=== PATIENT | female | born 2000 | race Caucasian/White ===

== ENCOUNTER 2019-04-27 11:01 | Day surgery (SDC) | payer BC ==
[~2019-04-27 11:01] MED LIST: Lactated Ringers 1,000 ML IV SCH; Sodium Chloride 0.9% 10 ML SDV IV PRN; Sodium Chloride 0.9% 10 ML Syringe FLUSH PRN; Sodium Chloride 0.9% 2.5 ML Syringe FLUSH PRN
--- NOTE | 2019-04-27 12:00 | PCM.PREANE ---
Preanesthetic Assessment - Anesthesia/Transfusion/Family Hx Anesthesia History: Prior Anesthesia Without Reaction Family History of Anesthesia Reaction: No Transfusion History: No Prior Transfusion(s) Intubation History: Unknown - Review of Systems General: No Symptoms Pulmonary: No Symptoms Cardiovascular: No Symptoms Gastrointestinal: Diarrhea, Hematochezia Neurological: No Symptoms Other: Reports: None - Physical Assessment NPO Status Date: 04/27/19 NPO Status Time: 10:30 O2 Sat by Pulse Oximetry: 99 Respiratory Rate: 16 Vital Signs: Last Vital Signs Temp 36.1 C 04/27/19 11:30 Pulse 109 H 04/27/19 11:30 Resp 16 04/27/19 11:30 BP 146/93 H 04/27/19 11:30 Pulse Ox 99 04/27/19 11:30 Height: 5 ft 2 in Weight: 67.132 kg ASA Class: 2 Mental Status: Alert & Oriented x3 Airway Class: Mallampati = 2 Dentition: Reports: Normal Dentition Thyro-Mental Finger Breadths: 3 Mouth Opening Finger Breadths: 3 ROM/Head Extension: Full Lungs: Clear to Auscultation, Normal Respiratory Effort Cardiovascular: Regular Rate, Regular Rhythm - Lab Values: Laboratory Last Values Urine HCG, Qual NEGATIVE (NEGATIVE) 04/27/19 11:20 - Allergies Allergies/Adverse Reactions: Allergies Allergy/AdvReac Type Severity Reaction Status Date / Time Sulfa (Sulfonamide Allergy Anaphylactic Verified 04/22/19 14:30 Antibiotics) Shock - Blood Blood Available: No - Anesthesia Plan Pre-Op Medication Ordered: None - Acknowledgements Anesthesia Type Planned: MAC Pt an Appropriate Candidate for the Planned Anesthesia: Yes Alternatives and Risks of Anesthesia Discussed w Pt/Guardian: Yes Pt/Guardian Understands and Agrees with Anesthesia Plan: Yes PreAnesthesia Questionnaire HEENT History: Reports: Other (See Below) Other HEENT History: wears glasses/contacts, has removable dental retainer Gastrointestinal History: Reports: Chronic Diarrhea, Irritable Bowel Syndrome Musculoskeletal History: Reports: Fracture Other Musculoskeletal History: hx of fx toe Neurological History: Reports: Other (See Below) Other Neuro History: hx of Sleep Paralysis Psychiatric History: Reports: Anxiety Dermatologic History: Reports: Eczema - Past Surgical History HEENT Surgical History: Reports: Adenoidectomy, Myringotomy w Tube(s), Oral Surgery, Tonsillectomy Other HEENT Surgeries/Procedures: wisdom teeth GI Surgical History: Reports: EGD (05/17) - SUBSTANCE USE Smoking Status *Q: Never Smoker Recreational Drug Use History: No - HOME MEDS Home Medications: Home Meds ALPRAZolam [Alprazolam] 0.5 - 1 mg PO ASDIRECTED PRN 04/22/19 [History] Desogestrel-Ethinyl Estradiol [Reclipsen 28 Day Tablet] 1 tab PO DAILY 04/22/19 [History] Dicyclomine [Bentyl] 10 mg PO Q6H PRN 04/22/19 [History] Escitalopram Oxalate 20 mg PO DAILY 04/22/19 [History] Imipramine HCl 10 mg PO ASDIRECTED PRN 04/22/19 [History] L.acidoph,Paracasei, B.lactis [Probiotic] 1 cap PO ASDIRECTED PRN 04/22/19 [ History] Methylcellulose [Fiber] 1 tab PO ASDIRECTED PRN 04/22/19 [History] Triamcinolone Acetonide [Nasacort] 1 spray NASBOTH DAILY 04/22/19 [History] - CURRENT (IN HOUSE) MEDS Current Meds: Current Medications Lactated Ringer's (Ringers, Lactated) 1,000 mls @ 125 mls/hr IV ASDIRECTED YADIRA Sodium Chloride (Saline Flush) 10 ml FLUSH ASDIRECTED PRN PRN Reason: Keep Vein Open Sodium Chloride (Saline Flush) 2.5 ml FLUSH ASDIRECTED PRN PRN Reason: Keep Vein Open Sodium Chloride (Saline Flush) 10 ml FLUSH ASDIRECTED PRN PRN Reason: Keep Vein Open Sodium Chloride (Saline Flush) 2.5 ml FLUSH ASDIRECTED PRN PRN Reason: Keep Vein Open Sodium Chloride (Normal Saline) 10 ml IV ASDIRECTED PRN PRN Reason: IV Use
[2019-04-27] MEDS ORDERED: Lidocaine 2% 100 MG/5 ML Syringe ONE (14:42)
[2019-04-27] MEDS ORDERED: Propofol 200 MG/20 ML SDV ONE ×2 (14:42→14:46)
--- NOTE | 2019-04-27 15:00 | PCM.OPNOTE ---
- General Post-Op/Procedure Note Date of Surgery/Procedure: 04/27/19 Operative Procedure(s): diagnostic colonoscopy Findings: normal colonoscopy Pre Op Diagnosis: change in bowel habits Post-Op Diagnosis: IBS Anesthesia Technique: MAC Primary Surgeon: Shameka Iqbal Pathology: none EBL in mLs: 0 Condition: Good
--- NOTE | 2019-04-27 15:17 | PCM.POSTAN ---
POST ANESTHESIA ASSESSMENT - MENTAL STATUS Mental Status: Alert, Oriented - VITAL SIGNS Pulse Rate: 90 SaO2: 98 Resp Rate: 12 Blood Pressure: 123/84 - RESPIRATORY Respiratory Status: Respiratory Rate WNL, Airway Patent, O2 Saturation Stable - CARDIOVASCULAR CV Status: Pulse Rate WNL, Blood Pressure Stable - GASTROINTESTINAL GI Status: No Symptoms - PAIN Pain Score: 0 - POST OP HYDRATION Hydration Status: Adequate & Stable
--- NOTE | 2019-04-27 15:58 | PCM48HPAN ---
Post Anesthesia Note - EVALUATION WITHIN 48HRS OF ANESTHETIC Vital Signs in Normal Range: Yes Patient Participated in Evaluation: Yes Respiratory Function Stable: Yes Airway Patent: Yes Cardiovascular Function Stable: Yes Hydration Status Stable: Yes Pain Control Satisfactory: Yes Nausea and Vomiting Control Satisfactory: Yes Mental Status Recovered: Yes Pulse Rate: 90 Resp Rate: 16 Blood Pressure: 123/84 - COMMENTS/OBSERVATIONS Free Text/Narrative:: no anesthesia problems
--- NOTE | 2019-04-27 23:54 | OR ---
SURGEON: SHAMEKA IQBAL MD DATE OF PROCEDURE: 04/27/2019 PREOPERATIVE DIAGNOSIS: Change in bowel habits. POSTOPERATIVE DIAGNOSIS: Irritable bowel syndrome. PROCEDURE PERFORMED: Diagnostic colonoscopy. ENDOSCOPIST: Shameka Iqbal MD. ANESTHESIA: MAC. INSTRUMENT USED: Olympus colonoscope. EXTENT OF EXAM: To the cecum. PREPARATION: Good. LIMITATIONS: None. INDICATION FOR EXAMINATION: The patient is a 19-year-old female, who presents with chronic abdominal pain associated with diarrhea. The decision was made to proceed with diagnostic colonoscopy. I explained the procedure, expected perioperative course, and risks including bleeding, infection, or damage to surrounding structures including perforation. The patient verbalized understanding and wishes to proceed. PROCEDURE IN DETAIL: The patient was brought into the OR and laid in the cart in the left lateral decubitus position. A time-out was completed verifying the patient's name, age, date of , allergies, and procedure to be performed. Monitored anesthesia care was induced and continuous oxygen was provided via nasal cannula throughout the procedure. After adequate sedation was achieved, a digital rectal exam was performed. This exam was within normal limits. A well lubricated colonoscope was inserted in the rectum and advanced under direct visualization to the level of the cecum. The cecum was identified by both visual and anatomic landmarks. A photograph was taken of the cecal cap as well as with the scope retroflexed within the cecum. The scope was then fully withdrawn while examining the color, texture, anatomy, and integrity of the mucosa from the cecum to the anal canal. The patient's terminal ilium appeared pink and healthy with no evidence of inflammation. The colonic mucosa all appeared normal. The scope was then brought into the rectum. I attempted to retroflex the scope, however, due to the patient's small rectum, I was unable to do so. I attempted to retroflex multiple times but it was just causing trauma to the rectal mucosa. I slowly retracted the scope. I was able to take a good look at the patient's hemorrhoids, which appeared normal. The scope was removed and the procedure terminated. The cecum to anus time was 6 minutes. The patient tolerated the procedure well was transferred to the PACU in stable condition. ENDOSCOPIC DIAGNOSIS: Irritable bowel syndrome. RECOMMENDATIONS: We will follow up with the patient in clinic in 2 weeks. PAKO ZENDEJAS /[id number]
== END 2019-04-27 15:45 | disposition home or self-care (01) ==
LOC: MW.SDS 11:01
PROVIDERS: ATTEND Surgery
DX: K58.9 Irritable bowel syndrome, unspecified (principal); K64.9 Unspecified hemorrhoids; F40.10 Social phobia, unspecified; R10.9 Unspecified abdominal pain; G89.29 Other chronic pain; Z88.2 Allergy status to sulfonamides; Z79.899 Other long term (current) drug therapy
CPT/HCPCS: 45378; 81025; J2001; J2704; J7120; 00811

== ENCOUNTER 2019-05-05 06:43 | Day surgery (SDC) | payer BC ==
[~2019-05-05 06:43] MED LIST changes: +ceFAZolin 1 GM in Premix Bag 1 BAG IV ONE
--- NOTE | 2019-05-05 07:12 | PCM.PREANE ---
Preanesthetic Assessment - Anesthesia/Transfusion/Family Hx Anesthesia History: Prior Anesthesia Without Reaction Family History of Anesthesia Reaction: No Transfusion History: No Prior Transfusion(s) Intubation History: Unknown - Review of Systems General: No Symptoms Pulmonary: No Symptoms Cardiovascular: No Symptoms Gastrointestinal: No Symptoms Neurological: No Symptoms Other: Reports: None - Physical Assessment Height: 5 ft 2 in Weight: 69.853 kg ASA Class: 2 Mental Status: Alert & Oriented x3 Airway Class: Mallampati = 2 Dentition: Reports: Normal Dentition Thyro-Mental Finger Breadths: 3 Mouth Opening Finger Breadths: 3 ROM/Head Extension: Full Lungs: Clear to Auscultation, Normal Respiratory Effort Cardiovascular: Regular Rate, Regular Rhythm - Lab Values: Laboratory Last Values Urine HCG, Qual NEGATIVE (NEGATIVE) 05/05/19 06:50 - Allergies Allergies/Adverse Reactions: Allergies Allergy/AdvReac Type Severity Reaction Status Date / Time Sulfa (Sulfonamide Allergy Anaphylactic Verified 04/30/19 13:55 Antibiotics) Shock - Blood Blood Available: No - Anesthesia Plan Pre-Op Medication Ordered: None - Acknowledgements Anesthesia Type Planned: General Anesthesia Pt an Appropriate Candidate for the Planned Anesthesia: Yes Alternatives and Risks of Anesthesia Discussed w Pt/Guardian: Yes Pt/Guardian Understands and Agrees with Anesthesia Plan: Yes PreAnesthesia Questionnaire HEENT History: Reports: Other (See Below) Other HEENT History: wears glasses/contacts, has removable dental retainer Cardiovascular History: Reports: None Respiratory History: Reports: None Gastrointestinal History: Reports: Irritable Bowel Syndrome, Other (See Below) ( cholecystitis) Genitourinary History: Reports: None Musculoskeletal History: Reports: Fracture Other Musculoskeletal History: hx of fx toe Neurological History: Reports: Other (See Below) Other Neuro History: hx of Sleep Paralysis Psychiatric History: Reports: Anxiety, Depression Endocrine/Metabolic History: Reports: None Hematologic History: Reports: None Immunologic History: Reports: None Oncologic (Cancer) History: Reports: None Dermatologic History: Reports: Eczema - Past Surgical History Head Surgeries/Procedures: Reports: None HEENT Surgical History: Reports: Myringotomy w Tube(s), Tonsillectomy, Other ( See Below) Other HEENT Surgeries/Procedures: Mcgrew Teeth removal Cardiovascular Surgical History: Reports: None Respiratory Surgical History: Reports: None GI Surgical History: Reports: Colonoscopy, EGD Female Surgical History: Reports: None Endocrine Surgical History: Reports: None Neurological Surgical History: Reports: None Musculoskeletal Surgical History: Reports: None Oncologic Surgical History: Reports: None - SUBSTANCE USE Smoking Status *Q: Never Smoker Recreational Drug Use History: No - HOME MEDS Home Medications: Home Meds ALPRAZolam [Alprazolam] 0.5 - 1 mg PO ASDIRECTED PRN 04/22/19 [History] Desogestrel-Ethinyl Estradiol [Reclipsen 28 Day Tablet] 1 tab PO DAILY 04/22/19 [History] Dicyclomine [Bentyl] 10 mg PO Q6H PRN 04/22/19 [History] Escitalopram Oxalate 20 mg PO DAILY 04/22/19 [History] Imipramine HCl 10 mg PO ASDIRECTED PRN 04/22/19 [History] L.acidoph,Paracasei, B.lactis [Probiotic] 1 cap PO ASDIRECTED PRN 04/22/19 [ History] Triamcinolone Acetonide [Nasacort] 1 spray NASBOTH DAILY 04/22/19 [History] Fiber Complete 1 tab PO ASDIRECTED 04/30/19 [History] - CURRENT (IN HOUSE) MEDS Current Meds: Current Medications Lactated Ringer's (Ringers, Lactated) 1,000 mls @ 125 mls/hr IV ASDIRECTED YADIRA Sodium Chloride (Saline Flush) 10 ml FLUSH ASDIRECTED PRN PRN Reason: Keep Vein Open Sodium Chloride (Saline Flush) 2.5 ml FLUSH ASDIRECTED PRN PRN Reason: Keep Vein Open Sodium Chloride (Normal Saline) 10 ml IV ASDIRECTED PRN PRN Reason: IV Use Discontinued Medications Cefazolin Sodium/Dextrose 1 gm (/ Premix) 50 mls @ 100 mls/hr IV ONETIME ONE Stop: 05/04/19 10:44
[2019-05-05] MEDS ORDERED: Lidocaine 2% 5 ML SDV ONE (07:20)
[2019-05-05] MEDS ORDERED: Rocuronium 100 MG/10 ML Syringe ONE (07:20)
[2019-05-05] MEDS ORDERED: Ondansetron 4 MG/2 ML SDV ONE (07:20)
[2019-05-05] MEDS ORDERED: Glycopyrrolate 0.2 MG/ML SDV ONE (07:20)
[2019-05-05] MEDS ORDERED: Neostigmine Methylsulfate 1 MG/ML 5 ML Syringe ONE (07:20)
[2019-05-05] MEDS ORDERED: Ketorolac 30 MG/ML SDV ONE (07:20)
[2019-05-05] MEDS ORDERED: fentaNYL 250 MCG/5 ML SDV ONE ×2 (07:23→08:31)
[2019-05-05] MEDS ORDERED: Propofol 200 MG/20 ML SDV ONE (07:23)
[2019-05-05] MEDS ORDERED: Midazolam 1 MG/ML 2 ML SDV ONE (07:23)
[2019-05-05] MEDS ORDERED: Sodium Chloride 0.9% 20 ML ONE (07:32)
[2019-05-05] MEDS ORDERED: ceFAZolin 1 GM Vial ONE (07:32)
[2019-05-05] MEDS ORDERED: Bupivacaine 0.5% 30 ML SDV ONE (07:36)
[2019-05-05] MEDS ORDERED: Phenylephrine/Normal Saline 100 MCG/ML 10 ML Syringe ONE (09:22)
--- NOTE | 2019-05-05 09:52 | PCM.OPNOTE ---
- General Post-Op/Procedure Note Date of Surgery/Procedure: 05/05/19 Operative Procedure(s): Laparoscopic cholecystectomy Findings: Mildly inflamed gallbladder with adhesions to the omentum Pre Op Diagnosis: biliary dyskinesia Post-Op Diagnosis: same Anesthesia Technique: General ET Tube Primary Surgeon: Shameka Iqbal Fluid Replacement, Intraop: 1,100 Output, Urine Amount: 900 EBL in mLs: 10 Condition: Good
--- NOTE | 2019-05-05 10:35 | PCM.POSTAN ---
POST ANESTHESIA ASSESSMENT - MENTAL STATUS Mental Status: Alert - VITAL SIGNS Pulse Rate: 88 SaO2: 99 Resp Rate: 16 Blood Pressure: 122/79 Temperature: 36.2 C - RESPIRATORY Respiratory Status: Respiratory Rate WNL - CARDIOVASCULAR CV Status: Pulse Rate WNL - GASTROINTESTINAL GI Status: No Symptoms - PAIN Pain Score: 0 - POST OP HYDRATION Hydration Status: Adequate & Stable (Doing well. Ready for transfer to .)
[2019-05-05] MEDS ORDERED: HYDROmorphone 1 MG/ML Syringe IVPUSH PRN (10:41)
[2019-05-05] MEDS ORDERED: Acetaminophen/oxyCODONE 325-5 MG Tab PO PRN (10:43)
[2019-05-05] MEDS ORDERED: HYDROmorphone 2 MG/ML Syringe IVPUSH PRN (10:44)
[2019-05-05] MEDS ORDERED: HYDROmorphone 2 MG/ML Syringe ONE (10:46)
--- NOTE | 2019-05-05 11:08 | OR ---
SURGEON: SHAMEKA IQBAL MD DATE OF PROCEDURE: 05/05/2019 PREOPERATIVE DIAGNOSIS: Biliary dyskinesia. POSTOPERATIVE DIAGNOSIS: Biliary dyskinesia. PROCEDURE PERFORMED: Laparoscopic cholecystectomy. PRIMARY SURGEON: Shameka Iqbal MD. ANESTHESIA: General endotracheal anesthesia. FLUIDS: 1100 mL crystalloid. URINE OUTPUT: 900 mL. ESTIMATED BLOOD LOSS: 10 mL. FINDINGS: Mildly inflamed gallbladder with omental adhesions. COMPLICATIONS: None. INDICATIONS: The patient is a 19-year-old female who recently underwent a HIDA scan. This showed an ejection fraction of 9% consistent with biliary dyskinesia. The patient and I discussed the Pathophysiology of biliary disease. The treatment for biliary dyskinesia is removal of the gallbladder. I explained the laparoscopic and open cholecystectomy procedures to the patient. I would attempt it laparoscopically, but should I be unable to perform it safely, I would convert to open. I explained the expected perioperative course as well as the risks including bleeding, infection, or damage to surrounding structures. The patient verbalized understanding and wishes to proceed. PROCEDURE IN DETAIL: The patient was brought into the OR and placed on the OR table in supine position. A time-out was completed verifying the patient's name, age, date of , allergies, and procedure to be performed. General endotracheal anesthesia was induced. A Wheeler catheter was placed and the left arm was tucked to the patient's side. The abdomen was prepped and draped in usual standard fashion. I anesthetized the infraumbilical fold with 0.5% Marcaine plain. An 11 blade was used to make an incision along this fold. Cautery was used to dissect down to the level of subcutaneous fat. I then bluntly dissected down to the level of the fascia. The fascia was elevated with Nadir's and incised sharply with a curved Ruvalcaba scissors. I identified the peritoneum. This was elevated with hemostats and incised sharply with a Metzenbaum scissors. Entry into the abdomen was palpated digitally. A 12 mm Edu trocar was inserted in the abdomen and the abdomen insufflated. A 5 mm 30 degree scope was inserted and I inspected the area underneath my initial trocar placement. No damage to surrounding structures was noted. The patient was placed into reverse Trendelenburg position and airplaned slightly to the left. 5 mm trocars were placed under direct visualization in the following locations; one in the epigastric area, one in the right flank, and one 2 fingerbreadths below the right subcostal margin in the midclavicular line. The dome of the gallbladder was grasped and elevated cranially. The body of the gallbladder contained omental adhesions. These were taken down using a combination of blunt and sharp dissection. Once I cleared away the infundibulum, I then continued to bluntly dissect around the cystic duct and artery that cleared away from the surrounding attachments. Once I had performed this, I dissected out the proximal one-third of the cystic plate. Once my critical view was achieved, I doubly clipped and ligated the cystic duct and artery. Electrocautery was used to remove the gallbladder from the gallbladder fossa. Once the gallbladder was freed, I placed in an EndoCatch bag and removed it through the 12 mm port site. The Edu trocar was replaced and I inspected my operative field. There were a couple of pinpoint areas of bleeding along the gallbladder fossa. Hemostasis was achieved with electrocautery. I irrigated the abdomen with 500 mL of normal saline and suctioned this out. I reinspected my operative field and it was hemostatic with no evidence of biliary leakage. The clips appeared to be in good position. The 5 mm trocars were removed under direct visualization and the abdomen allowed to desufflate. The 12 mm Edu trocar was removed then as well. The fascia at the infraumbilical port site was closed with interrupted 0 Vicryl sutures. The subcutaneous fat layer was closed with interrupted 3-0 Vicryl sutures. The skin was closed with a running 4-0 Monocryl stitch. The 5 mm trocar sites were closed with interrupted 4-0 Monocryl sutures. Steri-Strips and sterile dressings were applied. The patient tolerated the procedure well and was taken to the PACU in stable condition. All counts were complete and correct at the end of the case. PAKO / CRISTIANA /[id number]
--- NOTE | 2019-05-05 13:24 | PCM48HPAN ---
Post Anesthesia Note - EVALUATION WITHIN 48HRS OF ANESTHETIC Vital Signs in Normal Range: Yes Patient Participated in Evaluation: Yes Respiratory Function Stable: Yes Airway Patent: Yes Cardiovascular Function Stable: Yes Hydration Status Stable: Yes Pain Control Satisfactory: Yes Nausea and Vomiting Control Satisfactory: Yes Mental Status Recovered: Yes Pulse Rate: 88 Resp Rate: 16 Temperature: 36.2 C Blood Pressure: 122/79 - COMMENTS/OBSERVATIONS Free Text/Narrative:: no anesthesia problems
== END 2019-05-05 13:05 | disposition home or self-care (01) ==
LOC: MW.SDS 06:43
PROVIDERS: ATTEND Surgery
DX: K81.1 Chronic cholecystitis (principal); K66.0 Peritoneal adhesions (postprocedural) (postinfection); K58.0 Irritable bowel syndrome with diarrhea; F41.9 Anxiety disorder, unspecified; Z88.2 Allergy status to sulfonamides; Z79.899 Other long term (current) drug therapy
CPT/HCPCS: 47562; 81025; A9270; J0690; J1170; J1885; J2001; J2250; J2370; J2405; J2704; J3010; J3490; J7120; 00790; 88304

== ENCOUNTER 2020-12-22 05:01 | Inpatient (IN) | payer OTHER, BC ==
[2020-12-22] MEDS ORDERED: Ondansetron 4 MG/2 ML SDV IVPUSH PRN (08:28)
[2020-12-22] MEDS ORDERED: Methylergonovine 0.2 MG/1 ML Amp IM PRN (08:28)
[2020-12-22] MEDS ORDERED: Nalbuphine 10 MG/1 ML Vial IVPUSH PRN (08:28)
[2020-12-22] MEDS ORDERED: Water For Irrigation,Sterile 1,000 ML Container IRR PRN (08:28)
[2020-12-22] MEDS ORDERED: Misoprostol 200 MCG Tab PO PRN (08:28)
[2020-12-22] MEDS ORDERED: Sodium Chloride 0.9% 10 ML SDV IV PRN (08:28)
[2020-12-22] MEDS ORDERED: Misoprostol 25 MCG (1/4 of 100 MCG) Tab VAG PRN ×2 (08:28)
[2020-12-22] MEDS ORDERED: Carboprost Tromethamine 250 MCG/1 ML Amp IM PRN (08:28)
[2020-12-22] MEDS ORDERED: Terbutaline 1 MG/ML SDV SUBCUT PRN (08:28)
[2020-12-22] MEDS ORDERED: Butorphanol 1 MG/ML SDV IVPUSH PRN (08:28)
[2020-12-22] MEDS ORDERED: Tranexamic Acid 1,000 MG in Sodium Chloride 0.9% 100 ML IV PRN (08:28)
[2020-12-22] MEDS ORDERED: Lidocaine 1% 50 ML MDV INJECT PRN (08:28)
[2020-12-22] MEDS ORDERED: Oxytocin/0.9 % Sodium Chloride 30 UNIT/500 ML BAG IV SCH ×2 (08:30)
--- NOTE | 2020-12-22 08:49 | PCM.LDHP ---
L&D History of Present Illness - General Date of Service: 12/22/20 Admit Problem/Dx: Patient Status Order with Admit Dx/Problem 12/22/20 05:04 Patient Status [ADT] Routine 12/22/20 08:28 Patient Status [ADT] Routine Admission Diagnosis/Problem Admission Diagnosis/Problem 12/22/20 08:33 at 38 3/7 weeks (ZURDO: 01/02/21 by first trimester ultrasound) presenting to L&D with complaints of regular uterine contractions and possible SROM at 0230. Amnisure negative. VE at 0515 noted 3cm/80%/-2, soft, midposition, vertex per nurse report (12/20/20 exam in-office was closed, thick, and high with mild funneling of external os, posterior). Follow up VE at 0752 noted 3cm/70%/-2, soft, midposition, vertex per nurse report. No cervical change observed. However, patient's BP has been consistently reading 150s/90s. As such, and after consulting with Dr. Feliz, I have decided to keep the patient and proceed with delivery (aided by cytotec and pitocin PRN). She continues to contract every 2-4 minutes and is having to breathe through the pain. Vertex presentation by Javier'mar. O-, Rubella immune, GBS negative. This has also been notable for PUPPP (managed with hydroxyzine) and obesity. We have discussed the use of cytotec and pitocin as needed; I have answered all the patient's questions at this time. Source of Information: Patient History Limitations: Reports: No Limitations - Related Data Allergies/Adverse Reactions: Allergies Allergy/AdvReac Type Severity Reaction Status Date / Time Sulfa (Sulfonamide Allergy Anaphylactic Verified 12/22/20 05:27 Antibiotics) Shock Home Medications: Home Meds Colchicine/Probenecid [Probenecid-Colchicine Tablets] 1 tab PO DAILY 12/22/20 [History] Vits #93/Iron Fum/FA [ Formula Tablet] 1 each PO DAILY 12/22/20 [History] Sertraline [Zoloft] 75 mg PO DAILY 12/22/20 [History] Past Medical History HEENT History: Reports: Other (See Below) Other HEENT History: wears glasses/contacts, has removable dental retainer Cardiovascular History: Reports: None Respiratory History: Reports: None Gastrointestinal History: Reports: Irritable Bowel Syndrome, Other (See Below) Genitourinary History: Reports: None Musculoskeletal History: Reports: Fracture Other Musculoskeletal History: hx of fx toe Neurological History: Reports: Other (See Below) Other Neuro History: hx of Sleep Paralysis Psychiatric History: Reports: Anxiety, Depression Endocrine/Metabolic History: Reports: None Hematologic History: Reports: None Immunologic History: Reports: None Oncologic (Cancer) History: Reports: None Dermatologic History: Reports: Eczema - Past Surgical History Head Surgeries/Procedures: Reports: None HEENT Surgical History: Reports: Myringotomy w Tube(s), Tonsillectomy, Other (See Below) Other HEENT Surgeries/Procedures: [place] Teeth removal Cardiovascular Surgical History: Reports: None Respiratory Surgical History: Reports: None GI Surgical History: Reports: Colonoscopy, EGD Female Surgical History: Reports: None Endocrine Surgical History: Reports: None Neurological Surgical History: Reports: None Musculoskeletal Surgical History: Reports: None Oncologic Surgical History: Reports: None H&P Review of Systems - Review of Systems: Review Of Systems: See Below General: Reports: No Symptoms HEENT: Reports: No Symptoms Pulmonary: Reports: No Symptoms Cardiovascular: Reports: No Symptoms Gastrointestinal: Reports: No Symptoms Genitourinary: Reports: No Symptoms Musculoskeletal: Reports: No Symptoms Skin: Reports: No Symptoms Psychiatric: Reports: No Symptoms Neurological: Reports: No Symptoms Hematologic/Lymphatic: Reports: No Symptoms Immunologic: Reports: No Symptoms L&D Exam - Exam Exam: See Below - Vital Signs Weight: 210 lb - OB Specific Movement: Active Heart Tones: Present Heart Rate (FHR) Variability: Moderate (6-25 bmp) Presentation: Vertex - Rodriguez Score Rodriguez Score Cervix Position: Midposition Rodriguez Score Consistency: Soft Rodriguez Score Effacement: 51-70% Rodriguez Score Dilation: 3-4 cm Rodriguez Score 's Station: -2 Rordiguez Score Total: 8 - Exam General: Alert, Oriented, Cooperative Lungs: Normal Respiratory Effort Cardiovascular: Regular Rate, Regular Rhythm GI/Abdominal Exam: Soft, Non-Tender Rectal Exam: Deferred Genitourinary: Deferred Back Exam: Normal Inspection, Full Range of Motion Extremities: Normal Inspection, Normal Range of Motion, Non-Tender, Normal Capillary Refill Skin: Warm, Dry, Intact Neurological: Strength Equal Bilateral, Normal Speech, Normal Tone, Sensation Intact Psychiatric: Alert, Normal Affect, Normal Mood - Patient Data Lab Results Last 24 hrs: Laboratory Results - last 24 hr 12/22/20 12/22/20 Range/Units 05:12 06:00 Membrane Rupture NEGATIVE Gayatri species DNA NEGATIVE (NEGATIVE) Gardnerella DNA Probe NEGATIVE (NEGATIVE) Trichomonas DNA Probe NEGATIVE (NEGATIVE) - Problem List (1) Supervision of normal IUP (intrauterine ) in primigravida SNOMED Code(s): 58446472, 864187946, 160813967, 641011528 ICD Code: Z34.00 - ENCNTR FOR SUPRVSN OF NORMAL FIRST , UNSP TRIMESTER Status: Acute Priority: High Current Visit: Yes Qualifiers: Trimester: third trimester Qualified Code(s): Z34.03 - Encounter for supervision of normal first , third trimester (2) PUPPP (pruritic urticarial papules and plaques of ) SNOMED Code(s): 13503792 ICD Code: O26.86 - PRURITIC URTICARIAL PAPULES AND PLAQUES OF (PUPPP) Status: Acute Priority: High Current Visit: Yes Problem List Initiated/Reviewed/Updated: Yes Orders Last 24hrs: Active Orders 24 hr Category Date Time Status Patient Status [ADT] Routine ADT 12/22/20 05:04 Active Patient Status [ADT] Routine ADT 12/22/20 08:28 Active Bedrest Bathroom Privileges [RC] ASDIRECTED Care 12/22/20 08:28 Active Communication Order [RC] ASDIRECTED Care 12/22/20 08:28 Active Communication Order [RC] ASDIRECTED Care 12/22/20 08:28 Active Heart Tones [RC] CONTINUOUS Care 12/22/20 08:28 Active Non Stress Test [RC] PER UNIT ROUTINE Care 12/22/20 05:04 Active May Shower [RC] ASDIRECTED Care 12/22/20 08:28 Active Notify Provider [RC] PRN Care 12/22/20 08:28 Active Notify Provider [RC] PRN Care 12/22/20 08:28 Active Notify Provider [RC] STAT Care 12/22/20 08:28 Active Oxygen Therapy [RC] ASDIRECTED Care 12/22/20 08:28 Active Up ad Linda [RC] ASDIRECTED Care 12/22/20 05:04 Active Vaginal Exam [RC] Click to Edit Care 12/22/20 05:04 Active Vaginal Exam [RC] PRN Care 12/22/20 08:28 Active Vital Signs [RC] PER UNIT ROUTINE Care 12/22/20 05:04 Active CBC W/O DIFF,HEMOGRAM [HEME] Routine Lab 12/22/20 08:28 Ordered CORONAVIRUS COVID-19 ZHANG [MOLEC] Routine Lab 12/22/20 08:16 Received RPR (SYPHILIS SERO) W/ RFLX [REF] Routine Lab 12/22/20 08:28 Ordered TYPE AND SCREEN [BBK] Routine Lab 12/22/20 08:28 Ordered Butorphanol [Stadol] Med 12/22/20 08:28 Ordered 1 mg IVPUSH Q1H PRN Carboprost Tromethamine [Hemabate DS] Med 12/22/20 08:28 Ordered 250 mcg IM ASDIRECTED PRN Lactated Ringers [Ringers, Lactated] 1,000 ml Med 12/22/20 08:30 Ordered IV ASDIRECTED Lidocaine 1% [Xylocaine 1%] Med 12/22/20 08:28 Ordered 50 ml INJECT ONETIME PRN Methylergonovine [Methergine] Med 12/22/20 08:28 Ordered 0.2 mg IM ASDIRECTED PRN Nalbuphine [Nubain] Med 12/22/20 08:28 Ordered 10 mg IVPUSH Q1H PRN Ondansetron [Zofran] Med 12/22/20 08:28 Ordered 4 mg IVPUSH Q4H PRN Oxytocin/0.9 % Sodium Chloride [Oxytocin 30 Unit/500 ML Med 12/22/20 08:30 Ordered -NS] 30 unit in 500 ml IV TITRATE Oxytocin/0.9 % Sodium Chloride [Oxytocin 30 Unit/500 ML Med 12/22/20 08:30 Ordered -NS] 30 unit in 500 ml IV TITRATE Sodium Chloride 0.9% [Normal Saline] Med 12/22/20 08:28 Ordered 10 ml IV ASDIRECTED PRN Terbutaline [Brethine] Med 12/22/20 08:28 Ordered 0.25 mg SUBCUT ASDIRECTED PRN Tranexamic Acid [Cyklokapron] 1,000 mg Med 12/22/20 08:28 Ordered Sodium Chloride 0.9% [Normal Saline] 100 ml IV ONETIME Water For Irrigation,Sterile [Sterile Water for Med 12/22/20 08:28 Ordered Irrigation] 1,000 ml IRR ASDIRECTED PRN miSOPROStoL [Cytotec] Med 12/22/20 08:28 Ordered 200 mcg PO ONETIME PRN miSOPROStoL [Cytotec] Med 12/22/20 08:28 Ordered 25 mcg VAG ONETIME PRN miSOPROStoL [Cytotec] Med 12/22/20 08:28 Ordered 25 mcg VAG Q4H PRN Scalp Electrode [WOMSER] Per Unit Routine Oth 12/22/20 08:28 Ordered Medication Administration Instruction [OM.PC] Q3H Oth 12/22/20 08:30 Ordered Peripheral IV Insertion Adult [OM.PC] Routine Oth 12/22/20 08:28 Ordered Resuscitation Status Routine Resus Stat 12/22/20 05:04 Ordered Medication Orders Butorphanol Tartrate (Butorphanol 1 Mg/Ml Sdv) 1 mg IVPUSH Q1H PRN PRN Reason: Pain Carboprost Tromethamine (Carboprost Tromethamine 250 Mcg/1 Ml Amp) 250 mcg IM ASDIRECTED PRN PRN Reason: Post Hemorrhage Lactated Ringer's (Ringers, Lactated) 1,000 mls @ 150 mls/hr IV ASDIRECTED YADIRA Oxytocin/Sodium Chloride (Oxytocin 30 Unit/500 Ml-Ns) 30 unit in 500 mls @ 999 mls/hr IV TITRATE YADIRA Tranexamic Acid 1,000 mg/ (Sodium Chloride) 110 mls @ 660 mls/hr IV ONETIME PRN PRN Reason: Bleeding Oxytocin/Sodium Chloride (Oxytocin 30 Unit/500 Ml-Ns) 30 unit in 500 mls @ 2 mls/hr IV TITRATE YADIRA; Protocol Lidocaine HCl (Lidocaine 1% 50 Ml Mdv) 50 ml INJECT ONETIME PRN PRN Reason: Laceration repair Methylergonovine Maleate (Methylergonovine 0.2 Mg/1 Ml Amp) 0.2 mg IM ASDIRECTED PRN PRN Reason: Post Hemorrhage Misoprostol (Misoprostol 200 Mcg Tab) 200 mcg PO ONETIME PRN PRN Reason: Post Hemorrhage Misoprostol (Misoprostol 25 Mcg (1/4 Of 100 Mcg) Tab) 25 mcg VAG ONETIME PRN PRN Reason: Cervical Ripening Misoprostol (Misoprostol 25 Mcg (1/4 Of 100 Mcg) Tab) 25 mcg VAG Q4H PRN PRN Reason: Cervical Ripening Nalbuphine HCl (Nalbuphine 10 Mg/1 Ml Vial) 10 mg IVPUSH Q1H PRN PRN Reason: Pain (severe 7-10) Ondansetron HCl (Ondansetron 4 Mg/2 Ml Sdv) 4 mg IVPUSH Q4H PRN PRN Reason: Nausea/Vomiting Sodium Chloride (Sodium Chloride 0.9% 10 Ml Sdv) 10 ml IV ASDIRECTED PRN PRN Reason: IV Use Sterile Water (Water For Irrigation,Sterile 1,000 Ml Container) 1,000 ml IRR ASDIRECTED PRN PRN Reason: delivery Terbutaline Sulfate (Terbutaline 1 Mg/Ml Sdv) 0.25 mg SUBCUT ASDIRECTED PRN PRN Reason: Tacysystole Assessment/Plan Comment:: Admit A: at 38 3/7 weeks (ZURDO: 01/02/21 by first trimester ultrasound) presenting to L&D with complaints of regular uterine contractions and possible SROM at 0230. Amnisure negative. VE at 0515 noted 3cm/80%/-2, soft, midposition, vertex per nurse report (12/20/20 exam in-office was closed, thick, and high with mild funneling of external os, posterior). Follow up VE at 0752 noted 3cm/70%/-2, soft, midposition, vertex per nurse report. No cervical change observed. However, patient's BP has been consistently reading 150s/90s. As such, and after consulting with Dr. Feliz, I have decided to keep the patient and proceed with delivery (aided by cytotec and pitocin PRN). She continues to contract every 2-4 minutes and is having to breathe through the pain. Vertex presentation by Javier'mar. O-, Rubella immune, GBS negative. This has also been notable for PUPPP (managed with hydroxyzine) and obesity. We have discussed the use of cytotec and pitocin as needed; I have answered all the patient's questions at this time. P: Anticipate ; cytotec to pitocin PRN; epidural PRN; Dr. Feliz updated.
[2020-12-22] MEDS: Lactated Ringers 1,000 ML IV SCH ×2 (09:54→15:23)
[2020-12-22] MEDS ORDERED: hydrALAZINE 20 MG/ML SDV IVPUSH ONE (13:41)
[2020-12-22] MEDS ORDERED: fentaNYL 100 MCG/2 ML SDV ONE (13:48)
[2020-12-22] MEDS ORDERED: Bupivicaine/fentaNYL/NS 250 ML ONE (13:49)
--- NOTE | 2020-12-22 14:35 | PCM.PREANE ---
Preanesthetic Assessment - Anesthesia/Transfusion/Family Hx Anesthesia History: Prior Anesthesia Without Reaction Family History of Anesthesia Reaction: No Transfusion History: Prior Transfusion Without Reaction Intubation History: Unknown - Review of Systems General: No Symptoms Pulmonary: No Symptoms Cardiovascular: No Symptoms Gastrointestinal: Abdominal Pain (labor pain) Neurological: No Symptoms Other: Reports: None - Physical Assessment Height: 5 ft 2 in Weight: 95.254 kg ASA Class: 2 Mental Status: Alert & Oriented x3 Airway Class: Mallampati = 2 Dentition: Reports: Normal Dentition Thyro-Mental Finger Breadths: 3 Mouth Opening Finger Breadths: 3 ROM/Head Extension: Full Lungs: Clear to Auscultation, Normal Respiratory Effort Cardiovascular: Regular Rate, Regular Rhythm - Lab Values: Laboratory Last Values WBC 14.40 K/uL (4.0-11.0) H 12/22/20 09:52 RBC 4.74 M/uL (4.30-5.90) 12/22/20 09:52 Hgb 13.3 g/dL (12.0-16.0) 12/22/20 09:52 Hct 40.2 % (36.0-46.0) 12/22/20 09:52 MCV 84.8 fL (80.0-98.0) 12/22/20 09:52 MCH 28.1 pg (27.0-32.0) 12/22/20 09:52 MCHC 33.1 g/dL (31.0-37.0) 12/22/20 09:52 RDW Std Deviation 54.3 fl (28.0-62.0) 12/22/20 09:52 RDW Coeff of Valeriy 18 % (11.0-15.0) H 12/22/20 09:52 Plt Count 203 K/uL (150-400) 12/22/20 09:52 MPV 11.70 fL (7.40-12.00) 12/22/20 09:52 Nucleated RBC % 0.0 /100WBC 12/22/20 09:52 Nucleated RBCs # 0 K/uL 12/22/20 09:52 Membrane Rupture NEGATIVE 12/22/20 05:12 Gayatri species DNA NEGATIVE (NEGATIVE) 12/22/20 06:00 Gardnerella DNA Probe NEGATIVE (NEGATIVE) 12/22/20 06:00 SARS-CoV-2 RNA (ZHANG) NEGATIVE (NEGATIVE) 12/22/20 08:16 Trichomonas DNA Probe NEGATIVE (NEGATIVE) 12/22/20 06:00 Blood Type O NEGATIVE 12/22/20 09:52 Antibody Screen POSITIVE 12/22/20 09:52 Antibody Identification Anti-D 12/22/20 09:52 - Allergies Allergies/Adverse Reactions: Allergies Allergy/AdvReac Type Severity Reaction Status Date / Time Sulfa (Sulfonamide Allergy Anaphylactic Verified 12/22/20 05:27 Antibiotics) Shock - Blood Blood Available: No - Anesthesia Plan Pre-Op Medication Ordered: None - Acknowledgements Anesthesia Type Planned: Epidural Pt an Appropriate Candidate for the Planned Anesthesia: Yes Alternatives and Risks of Anesthesia Discussed w Pt/Guardian: Yes Pt/Guardian Understands and Agrees with Anesthesia Plan: Yes PreAnesthesia Questionnaire HEENT History: Reports: Other (See Below) Other HEENT History: wears glasses/contacts, has removable dental retainer Cardiovascular History: Reports: None Respiratory History: Reports: None Gastrointestinal History: Reports: Irritable Bowel Syndrome, Other (See Below) Genitourinary History: Reports: None WEED THINNER History: Reports: Musculoskeletal History: Reports: Fracture Other Musculoskeletal History: hx of fx toe Neurological History: Reports: Other (See Below) Other Neuro History: hx of Sleep Paralysis Psychiatric History: Reports: Anxiety, Depression Endocrine/Metabolic History: Reports: None Hematologic History: Reports: None Immunologic History: Reports: None Oncologic (Cancer) History: Reports: None Dermatologic History: Reports: Eczema - Infectious Disease History Infectious Disease History: Reports: Chicken Pox, Measles, Mumps - Past Surgical History Head Surgeries/Procedures: Reports: None HEENT Surgical History: Reports: Myringotomy w Tube(s), Tonsillectomy, Other (See Below) Other HEENT Surgeries/Procedures: [place] Teeth removal Cardiovascular Surgical History: Reports: None Respiratory Surgical History: Reports: None GI Surgical History: Reports: Colonoscopy, EGD Female Surgical History: Reports: None Endocrine Surgical History: Reports: None Neurological Surgical History: Reports: None Musculoskeletal Surgical History: Reports: None Oncologic Surgical History: Reports: None - SUBSTANCE USE Tobacco Use Status *Q: Never Tobacco User Second Hand Smoke Exposure: No Recreational Drug Use History: No - HOME MEDS Home Medications: Home Meds Colchicine/Probenecid [Probenecid-Colchicine Tablets] 1 tab PO DAILY 12/22/20 [History] Vits #93/Iron Fum/FA [ Formula Tablet] 1 each PO DAILY 12/22/20 [History] Sertraline [Zoloft] 75 mg PO DAILY 12/22/20 [History] - CURRENT (IN HOUSE) MEDS Current Meds: Current Medications Butorphanol Tartrate (Butorphanol 1 Mg/Ml Sdv) 1 mg IVPUSH Q1H PRN PRN Reason: Pain Carboprost Tromethamine (Carboprost Tromethamine 250 Mcg/1 Ml Amp) 250 mcg IM ASDIRECTED PRN PRN Reason: Post Hemorrhage Lactated Ringer's (Ringers, Lactated) 1,000 mls @ 150 mls/hr IV ASDIRECTED YADIRA Last Infusion: 12/22/20 12:04 Dose: 150 mls/hr Documented by: Oxytocin/Sodium Chloride (Oxytocin 30 Unit/500 Ml-Ns) 30 unit in 500 mls @ 999 mls/hr IV TITRATE YADIRA Tranexamic Acid 1,000 mg/ (Sodium Chloride) 110 mls @ 660 mls/hr IV ONETIME PRN PRN Reason: Bleeding Oxytocin/Sodium Chloride (Oxytocin 30 Unit/500 Ml-Ns) 30 unit in 500 mls @ 2 mls/hr IV TITRATE YADIRA; Protocol Last Titration: 12/22/20 13:28 Dose: 4 munits/min, 4 mls/hr Documented by: Lidocaine HCl (Lidocaine 1% 50 Ml Mdv) 50 ml INJECT ONETIME PRN PRN Reason: Laceration repair Methylergonovine Maleate (Methylergonovine 0.2 Mg/1 Ml Amp) 0.2 mg IM ASDIRECTED PRN PRN Reason: Post Hemorrhage Misoprostol (Misoprostol 200 Mcg Tab) 200 mcg PO ONETIME PRN PRN Reason: Post Hemorrhage Misoprostol (Misoprostol 25 Mcg (1/4 Of 100 Mcg) Tab) 25 mcg VAG ONETIME PRN PRN Reason: Cervical Ripening Misoprostol (Misoprostol 25 Mcg (1/4 Of 100 Mcg) Tab) 25 mcg VAG Q4H PRN PRN Reason: Cervical Ripening Nalbuphine HCl (Nalbuphine 10 Mg/1 Ml Vial) 10 mg IVPUSH Q1H PRN PRN Reason: Pain (severe 7-10) Ondansetron HCl (Ondansetron 4 Mg/2 Ml Sdv) 4 mg IVPUSH Q4H PRN PRN Reason: Nausea/Vomiting Sodium Chloride (Sodium Chloride 0.9% 10 Ml Sdv) 10 ml IV ASDIRECTED PRN PRN Reason: IV Use Sterile Water (Water For Irrigation,Sterile 1,000 Ml Container) 1,000 ml IRR ASDIRECTED PRN PRN Reason: delivery Terbutaline Sulfate (Terbutaline 1 Mg/Ml Sdv) 0.25 mg SUBCUT ASDIRECTED PRN PRN Reason: Tacysystole Discontinued Medications Fentanyl (Fentanyl 100 Mcg/2 Ml Sdv) Confirm Administered Dose 100 mcg .ROUTE .STK-MED ONE Stop: 12/22/20 13:49 Hydralazine HCl (Hydralazine 20 Mg/Ml Sdv) 10 mg IVPUSH ONETIME ONE Stop: 12/22/20 13:42 Fentanyl/Bupivacaine HCl (Fentanyl/Bupivacaine/Ns 2 Mcg-0.125% 250 Ml) Confirm Administered Dose 250 mls @ as directed .ROUTE .STK-MED ONE Stop: 12/22/20 13:50
[2020-12-22] MEDS ORDERED: Bupivacaine 0.5% 10 ML SDV ONE (16:25)
--- NOTE | 2020-12-22 18:22 | PCM.DEL ---
L & D Note - General Info Date of Service: 12/22/20 Mother's Due Date: 01[birth year] - Delivery Note Labor: Spontaneous Delivery Outcome: Livebirth Presentation: Vertex Nuchal Cord: Present (x1), Reduced Anesthesia Type: Epidural Amniotic Fluid Description: Meconium Stained Episiotomy Type: None Laceration: 3rd Degree Suture type: Vicryl Suture size: 3-0 Placenta: Intact, Spontaneous Cord: 3 Vessels Estimated Blood Loss: 300 Resuscitation Needed: Yes : Suctioned, Stimulated Score 1 min: 3 Score 5 min: 8 Second Stage Interventions: Reports: Second Nurse Assessed Progress of Descent, Second Nurse Reviewed Contraction Pattern, Second Nurse Reviewed Heart Tones, Encouragement Given, Pushing Effectively, Pushing, Pulls Own Legs Back Delivery Comments (Free Text/Narrative):: viable female; meconium-stained fluid; epidural for pain relief; head delivered with good pushing; nuchal x1, reduced; shoulders and body followed after several more pushes; terminal meconium appreciated; baby to mom's abdomen; cord doubly clamped and cut; baby to warmer for assessment; APGARs 3/8; weight: 9 lb 2 oz; placenta delivered grossly intact; carmen; 3VC; EBL 300 mL; pitocin to IVF; Dr. Feliz called for repair of 3rd degree perineal laceration; repaired by Dr. Feliz with 3-0 vicryl; mom and baby left in stable condition with nurse at bedside for assessment - General Info Date of Service: 12/22/20 Admission Dx/Problem (Free Text): Patient Status Order with Admit Dx/Problem 12/22/20 05:04 Patient Status [ADT] Routine 12/22/20 08:28 Patient Status [ADT] Routine Admission Diagnosis/Problem Admission Diagnosis/Problem 12/22/20 08:33 at 38 3/7 weeks (ZURDO: 01/02/21 by first trimester ultrasound) presenting to L&D with complaints of regular uterine contractions and possible SROM at 0230. Amnisure negative. VE at 0515 noted 3cm/80%/-2, soft, midposition, vertex per nurse report (12/20/20 exam in-office was closed, thick, and high with mild funneling of external os, posterior). Follow up VE at 0752 noted 3cm/70%/-2, soft, midposition, vertex per nurse report. No cervical change observed. However, patient's BP has been consistently reading 150s/90s. As such, and after consulting with Dr. Feliz, I have decided to keep the patient and proceed with delivery (aided by cytotec and pitocin PRN). She continues to contract every 2-4 minutes and is having to breathe through the pain. Vertex presentation by Javier'mar. O-, Rubella immune, GBS negative. This has also been notable for PUPPP (managed with hydroxyzine) and obesity. We have discussed the use of cytotec and pitocin as needed; I have answered all the patient's questions at this time. Functional Status: Reports: Pain Controlled - Review of Systems General: Reports: No Symptoms HEENT: Reports: No Symptoms Pulmonary: Reports: No Symptoms Cardiovascular: Reports: No Symptoms Gastrointestinal: Reports: No Symptoms Genitourinary: Reports: No Symptoms Musculoskeletal: Reports: No Symptoms Skin: Reports: No Symptoms Neurological: Reports: No Symptoms Psychiatric: Reports: No Symptoms - Patient Data Weight - Most Recent: 210 lb Lab Results Last 24 Hours: Laboratory Results - last 24 hr 12/22/20 12/22/20 12/22/20 Range/Units 05:12 06:00 08:16 WBC (4.0-11.0) K/uL RBC (4.30-5.90) M/uL Hgb (12.0-16.0) g/dL Hct (36.0-46.0) % MCV (80.0-98.0) fL MCH (27.0-32.0) pg MCHC (31.0-37.0) g/dL RDW Std Deviation (28.0-62.0) fl RDW Coeff of Valeriy (11.0-15.0) % Plt Count (150-400) K/uL MPV (7.40-12.00) fL Nucleated RBC % /100WBC Nucleated RBCs # K/uL Membrane Rupture NEGATIVE Gayatri species DNA NEGATIVE (NEGATIVE) Gardnerella DNA Probe NEGATIVE (NEGATIVE) SARS-CoV-2 RNA (ZHANG) NEGATIVE (NEGATIVE) Trichomonas DNA Probe NEGATIVE (NEGATIVE) Blood Type Antibody Screen Antibody Identification 12/22/20 12/22/20 Range/Units 09:52 09:52 WBC 14.40 H (4.0-11.0) K/uL RBC 4.74 (4.30-5.90) M/uL Hgb 13.3 (12.0-16.0) g/dL Hct 40.2 (36.0-46.0) % MCV 84.8 (80.0-98.0) fL MCH 28.1 (27.0-32.0) pg MCHC 33.1 (31.0-37.0) g/dL RDW Std Deviation 54.3 (28.0-62.0) fl RDW Coeff of Valeriy 18 H (11.0-15.0) % Plt Count 203 (150-400) K/uL MPV 11.70 (7.40-12.00) fL Nucleated RBC % 0.0 /100WBC Nucleated RBCs # 0 K/uL Membrane Rupture Gayatri species DNA (NEGATIVE) Gardnerella DNA Probe (NEGATIVE) SARS-CoV-2 RNA (ZHANG) (NEGATIVE) Trichomonas DNA Probe (NEGATIVE) Blood Type O NEGATIVE Antibody Screen POSITIVE Antibody Identification Anti-D Med Orders - Current: Current Medications Butorphanol Tartrate (Butorphanol 1 Mg/Ml Sdv) 1 mg IVPUSH Q1H PRN PRN Reason: Pain Carboprost Tromethamine (Carboprost Tromethamine 250 Mcg/1 Ml Amp) 250 mcg IM ASDIRECTED PRN PRN Reason: Post Hemorrhage Lactated Ringer's (Ringers, Lactated) 1,000 mls @ 150 mls/hr IV ASDIRECTED YADIRA Last Admin: 12/22/20 15:23 Dose: 150 mls/hr Documented by: Oxytocin/Sodium Chloride (Oxytocin 30 Unit/500 Ml-Ns) 30 unit in 500 mls @ 999 mls/hr IV TITRATE YADIRA Tranexamic Acid 1,000 mg/ (Sodium Chloride) 110 mls @ 660 mls/hr IV ONETIME PRN PRN Reason: Bleeding Oxytocin/Sodium Chloride (Oxytocin 30 Unit/500 Ml-Ns) 30 unit in 500 mls @ 2 mls/hr IV TITRATE YADIRA; Protocol Last Titration: 12/22/20 17:40 Dose: 999 munits/min, 999 mls/hr Documented by: Lidocaine HCl (Lidocaine 1% 50 Ml Mdv) 50 ml INJECT ONETIME PRN PRN Reason: Laceration repair Last Admin: 12/22/20 17:53 Dose: 50 ml Documented by: Methylergonovine Maleate (Methylergonovine 0.2 Mg/1 Ml Amp) 0.2 mg IM ASDIRECTED PRN PRN Reason: Post Hemorrhage Misoprostol (Misoprostol 200 Mcg Tab) 200 mcg PO ONETIME PRN PRN Reason: Post Hemorrhage Misoprostol (Misoprostol 25 Mcg (1/4 Of 100 Mcg) Tab) 25 mcg VAG ONETIME PRN PRN Reason: Cervical Ripening Misoprostol (Misoprostol 25 Mcg (1/4 Of 100 Mcg) Tab) 25 mcg VAG Q4H PRN PRN Reason: Cervical Ripening Nalbuphine HCl (Nalbuphine 10 Mg/1 Ml Vial) 10 mg IVPUSH Q1H PRN PRN Reason: Pain (severe 7-10) Ondansetron HCl (Ondansetron 4 Mg/2 Ml Sdv) 4 mg IVPUSH Q4H PRN PRN Reason: Nausea/Vomiting Sodium Chloride (Sodium Chloride 0.9% 10 Ml Sdv) 10 ml IV ASDIRECTED PRN PRN Reason: IV Use Sterile Water (Water For Irrigation,Sterile 1,000 Ml Container) 1,000 ml IRR ASDIRECTED PRN PRN Reason: delivery Terbutaline Sulfate (Terbutaline 1 Mg/Ml Sdv) 0.25 mg SUBCUT ASDIRECTED PRN PRN Reason: Tacysystole Discontinued Medications Bupivacaine HCl (Bupivacaine 0.5% 10 Ml Sdv) Confirm Administered Dose 10 ml .ROUTE .STK-MED ONE Stop: 12/22/20 16:26 Fentanyl (Fentanyl 100 Mcg/2 Ml Sdv) Confirm Administered Dose 100 mcg .ROUTE .STK-MED ONE Stop: 12/22/20 13:49 Hydralazine HCl (Hydralazine 20 Mg/Ml Sdv) 10 mg IVPUSH ONETIME ONE Stop: 12/22/20 13:42 Last Admin: 12/22/20 15:23 Dose: Not Given Documented by: Fentanyl/Bupivacaine HCl (Fentanyl/Bupivacaine/Ns 2 Mcg-0.125% 250 Ml) Confirm Administered Dose 250 mls @ as directed .ROUTE .STK-MED ONE Stop: 12/22/20 13:50 - Exam General: Alert, Oriented, Cooperative, No Acute Distress Lungs: Normal Respiratory Effort Cardiovascular: Regular Rate, Regular Rhythm GI/Abdominal Exam: Soft, Non-Tender (Female) Exam: Other (3rd degree perineal laceration repaired by Dr. Feliz) Extremities: Normal Inspection, Normal Range of Motion, Non-Tender, Normal Capillary Refill Skin: Warm, Dry, Intact Neurological: No New Focal Deficit, Normal Speech, Normal Tone Psy/Mental Status: Alert, Normal Affect, Normal Mood - Problem List & Annotations (1) Supervision of normal IUP (intrauterine ) in primigravida SNOMED Code(s): 49405261, 570671375, 642561556, 137075105 Code(s): Z34.00 - ENCNTR FOR SUPRVSN OF NORMAL FIRST , UNSP TRIMESTER Status: Acute Priority: High Current Visit: Yes Qualifiers: Trimester: third trimester Qualified Code(s): Z34.03 - Encounter for supervision of normal first , third trimester (2) PUPPP (pruritic urticarial papules and plaques of ) SNOMED Code(s): 58340940 Code(s): O26.86 - PRURITIC URTICARIAL PAPULES AND PLAQUES OF (PUPPP) Status: Acute Priority: High Current Visit: Yes (3) (spontaneous vaginal delivery) SNOMED Code(s): 499493354 Code(s): O80 - ENCOUNTER FOR FULL-TERM UNCOMPLICATED DELIVERY Status: Acute Priority: High Current Visit: Yes - Problem List Review Problem List Initiated/Reviewed/Updated: Yes - Plan Plan:: Admit A: at 38 3/7 weeks (ZURDO: 01/02/21 by first trimester ultrasound) presenting to L&D with complaints of regular uterine contractions and possible SROM at 0230. Amnisure negative. VE at 0515 noted 3cm/80%/-2, soft, midpositi on, vertex per nurse report (12/20/20 exam in-office was closed, thick, and high with mild funneling of external os, posterior). Follow up VE at 0752 noted 3cm/70%/-2, soft, midposition, vertex per nurse report. No cervical change observed. However, patient's BP has been consistently reading 150s/90s. As such, and after consulting with Dr. Feliz, I have decided to keep the patient and proceed with delivery (aided by cytotec and pitocin PRN). She continues to contract every 2-4 minutes and is having to breathe through the pain. Vertex presentation by Javier'mar. O-, Rubella immune, GBS negative. This has also been notable for PUPPP (managed with hydroxyzine) and obesity. We have discussed the use of cytotec and pitocin as needed; I have answered all the patient's questions at this time. P: Anticipate ; cytotec to pitocin PRN; epidural PRN; Dr. Feliz updated. Delivery A: viable female; meconium-stained fluid; epidural for pain relief; head delivered with good pushing; nuchal x1, reduced; shoulders and body followed after several more pushes; terminal meconium appreciated; baby to mom's abdomen; cord doubly clamped and cut; baby to warmer for assessment; APGARs 3/8; weight: 9 lb 2 oz; placenta delivered grossly intact; nella; 3VC; EBL 300 mL; pitocin to IVF; Dr. Feliz called for repair of 3rd degree perineal laceration; repaired by Dr. Feliz with 3-0 vicryl; mom and baby left in stable condition with nurse at bedside for assessment P: Routine plan of care; Rhogam as indicated due to maternal Rh negative status; Dr. Feliz updated
[2020-12-22] MEDS ORDERED: Acetaminophen 500 MG Tab PO PRN ×2 (18:26)
[2020-12-22] MEDS ORDERED: Witch Hazel Medicated Pads 40/Jar TOP PRN (18:26)
[2020-12-22] MEDS ORDERED: oxyCODONE 5 MG Tab PO PRN (18:26)
[2020-12-22] MEDS ORDERED: Bisacodyl 10 MG Supp RECTAL PRN (18:26)
[2020-12-22] MEDS ORDERED: Lanolin 100% Cream 7 GM Tube TOP PRN (18:26)
[2020-12-22] MEDS ORDERED: Benzocaine/Menthol 20%-0.5% Spray 78 GM Cannister TOP PRN (18:26)
[2020-12-22] MEDS ORDERED: Ibuprofen 400 MG Tab PO PRN (18:26)
[2020-12-22] MEDS: Ibuprofen 800 MG Tab PO PRN (20:24)
[2020-12-22] MEDS: Docusate Sodium 100 MG Cap PO PRN (20:24)
[2020-12-23] MEDS: Ibuprofen 800 MG Tab PO PRN ×3 (07:55→21:16)
--- NOTE | 2020-12-23 07:59 | PCM48HPAN ---
Post Anesthesia Note - EVALUATION WITHIN 48HRS OF ANESTHETIC Vital Signs in Normal Range: Yes Patient Participated in Evaluation: Yes Respiratory Function Stable: Yes Airway Patent: Yes Cardiovascular Function Stable: Yes Hydration Status Stable: Yes Pain Control Satisfactory: Yes Nausea and Vomiting Control Satisfactory: Yes Mental Status Recovered: Yes Vital Signs: Last Vital Signs Temp 36.6 C 12/23/20 04:38 Pulse 106 H 12/23/20 04:38 Resp 14 12/23/20 04:38 BP 134/64 12/23/20 04:38 Pulse Ox 95 12/23/20 04:38
--- NOTE | 2020-12-23 08:24 | PCM.DCSUM1 ---
Discharge Summary - Hospital Course Free Text/Narrative:: Follow up in the clinic on Saturday (12/26) for BP check and again the following Saturday. Follow up in 6 weeks; sooner, if needed. Diagnosis: Stroke: No Modified Green[place]rier Scale: No Symptoms at All Modified Greenbrier Scale Score: 0 - Discharge Data Discharge Date: 12/23/20 Discharge Disposition: Home, Self-Care 01 Condition: Good - Referral to Home Health Primary Care Physician: PCP None - Discharge Diagnosis/Problem(s) (1) Supervision of normal IUP (intrauterine ) in primigravida SNOMED Code(s): 97391175, 505393342, 965657636, 692367059 ICD Code: Z34.00 - ENCNTR FOR SUPRVSN OF NORMAL FIRST , UNSP TRIMESTER Status: Acute Priority: High Qualifiers: Trimester: third trimester Qualified Code(s): Z34.03 - Encounter for supervision of normal first , third trimester (2) PUPPP (pruritic urticarial papules and plaques of ) SNOMED Code(s): 20059222 ICD Code: O26.86 - PRURITIC URTICARIAL PAPULES AND PLAQUES OF (PUPPP) Status: Acute Priority: High (3) (spontaneous vaginal delivery) SNOMED Code(s): 799956766 ICD Code: O80 - ENCOUNTER FOR FULL-TERM UNCOMPLICATED DELIVERY Status: Acute Priority: High - Patient Instructions Diet: Regular Diet as Tolerated, Drink 8-10+ Glasses/Day Activity: As Tolerated - Discharge Plan Prescriptions/Med Rec: Ibuprofen [Motrin] 800 mg PO Q8H PRN #90 tablet PRN Reason: Pain Home Medications: Home Meds Cholestyramine/Sucrose [Cholestyramine] 12/22/20 [History] Cholestyramine/Sucrose [Cholestyramine] 1 packet PO ACDINNER 12/22/20 [History] Colchicine/Probenecid [Probenecid-Colchicine] 1 tab PO DAILY 12/22/20 [History] Vits #93/Iron Fum/FA [ Formula Tablet] 1 each PO DAILY 12/22/20 [History] Sertraline [Zoloft] 75 mg PO DAILY 12/22/20 [History] Ibuprofen [Motrin] 800 mg PO Q8H PRN #90 tablet 12/24/20 [Rx] Patient Handouts: Baby Blues, Care After Vaginal Delivery Referrals: Do Huerta,Jaylyn [Ordering Only Provider] - 12/30/20 3:00 pm (1 week blood pressure follow-up.) Mi Hollingsworth CNM, LIFESTYLE COORDINATOR [Mid-] - 01/27/21 9:00 am ( follow-up appointment.) - Discharge Summary/Plan Comment DC Time >30 min.: Yes - Patient Data Vitals - Most Recent: Last Vital Signs Temp 97.8 F 12/23/20 04:38 Pulse 106 H 12/23/20 04:38 Resp 14 12/23/20 04:38 BP 134/64 12/23/20 04:38 Pulse Ox 95 12/23/20 04:38 Weight - Most Recent: 210 lb Lab Results - Last 24 hrs: Laboratory Results - last 24 hr 12/22/20 12/22/20 12/22/20 Range/Units 08:16 09:52 09:52 WBC 14.40 H (4.0-11.0) K/uL RBC 4.74 (4.30-5.90) M/uL Hgb 13.3 (12.0-16.0) g/dL Hct 40.2 (36.0-46.0) % MCV 84.8 (80.0-98.0) fL MCH 28.1 (27.0-32.0) pg MCHC 33.1 (31.0-37.0) g/dL RDW Std Deviation 54.3 (28.0-62.0) fl RDW Coeff of Valeriy 18 H (11.0-15.0) % Plt Count 203 (150-400) K/uL MPV 11.70 (7.40-12.00) fL Nucleated RBC % 0.0 /100WBC Nucleated RBCs # 0 K/uL SARS-CoV-2 RNA (ZHANG) NEGATIVE (NEGATIVE) Blood Type O NEGATIVE Antibody Screen POSITIVE Antibody Identification Anti-D 12/23/20 Range/Units 05:55 WBC (4.0-11.0) K/uL RBC (4.30-5.90) M/uL Hgb 11.9 L (12.0-16.0) g/dL Hct 36.0 (36.0-46.0) % MCV (80.0-98.0) fL MCH (27.0-32.0) pg MCHC (31.0-37.0) g/dL RDW Std Deviation (28.0-62.0) fl RDW Coeff of Valeriy (11.0-15.0) % Plt Count (150-400) K/uL MPV (7.40-12.00) fL Nucleated RBC % /100WBC Nucleated RBCs # K/uL SARS-CoV-2 RNA (ZHANG) (NEGATIVE) Blood Type Antibody Screen Antibody Identification Med Orders - Current: Current Medications Acetaminophen (Acetaminophen 500 Mg Tab) 500 mg PO Q4H PRN PRN Reason: Pain Acetaminophen (Acetaminophen 500 Mg Tab) 1,000 mg PO Q4H PRN PRN Reason: Pain Benzocaine/Menthol (Benzocaine/Menthol 20%-0.5% [place] 78 Gm Cannister) 78 gm TOP ASDIRECTED PRN PRN Reason: Perineal Comfort Measure Last Admin: 12/22/20 20:24 Dose: 1 spray Documented by: Bisacodyl (Bisacodyl 10 Mg Supp) 10 mg RECTAL ONETIME PRN PRN Reason: Constipation Docusate Sodium (Docusate Sodium 100 Mg Cap) 100 mg PO BID PRN PRN Reason: Constipation Last Admin: 12/22/20 20:24 Dose: 100 mg Documented by: Emollient Ointment (Lanolin 100% Cream 7 Gm Tube) 0 gm TOP ASDIRECTED PRN PRN Reason: Sore Nipples Last Admin: 12/22/20 20:22 Dose: 1 gm Documented by: Ibuprofen (Ibuprofen 400 Mg Tab) 400 mg PO Q4H PRN PRN Reason: Pain Ibuprofen (Ibuprofen 800 Mg Tab) 800 mg PO Q6H PRN PRN Reason: Pain Last Admin: 12/23/20 07:55 Dose: 800 mg Documented by: Oxycodone HCl (Oxycodone 5 Mg Tab) 5 mg PO Q2H PRN PRN Reason: Pain Witch Charla (Witch Chrala Medicated Pads 40/Jar) 1 pad TOP ASDIRECTED PRN PRN Reason: comfort care Last Admin: 12/22/20 20:24 Dose: 1 pad Documented by: Discontinued Medications Bupivacaine HCl (Bupivacaine 0.5% 10 Ml Sdv) Confirm Administered Dose 10 ml .ROUTE .STK-MED ONE Stop: 12/22/20 16:26 Last Admin: 12/23/20 04:47 Dose: Not Given Documented by: Butorphanol Tartrate (Butorphanol 1 Mg/Ml Sdv) 1 mg IVPUSH Q1H PRN PRN Reason: Pain Carboprost Tromethamine (Carboprost Tromethamine 250 Mcg/1 Ml Amp) 250 mcg IM ASDIRECTED PRN PRN Reason: Post Hemorrhage Fentanyl (Fentanyl 100 Mcg/2 Ml Sdv) Confirm Administered Dose 100 mcg .ROUTE .STK-MED ONE Stop: 12/22/20 13:49 Last Admin: 12/23/20 04:47 Dose: Not Given Documented by: Hydralazine HCl (Hydralazine 20 Mg/Ml Sdv) 10 mg IVPUSH ONETIME ONE Stop: 12/22/20 13:42 Last Admin: 12/22/20 15:23 Dose: Not Given Documented by: Lactated Ringer's (Ringers, Lactated) 1,000 mls @ 150 mls/hr IV ASDIRECTED YADIRA Last Admin: 12/22/20 15:23 Dose: 150 mls/hr Documented by: Oxytocin/Sodium Chloride (Oxytocin 30 Unit/500 Ml-Ns) 30 unit in 500 mls @ 999 mls/hr IV TITRATE YADIRA Tranexamic Acid 1,000 mg/ (Sodium Chloride) 110 mls @ 660 mls/hr IV ONETIME PRN PRN Reason: Bleeding Oxytocin/Sodium Chloride (Oxytocin 30 Unit/500 Ml-Ns) 30 unit in 500 mls @ 2 mls/hr IV TITRATE YADIRA; Protocol Last Titration: 12/22/20 17:40 Dose: 999 munits/min, 999 mls/hr Documented by: Fentanyl/Bupivacaine HCl (Fentanyl/Bupivacaine/Ns 2 Mcg-0.125% 250 Ml) Confirm Administered Dose 250 mls @ as directed .ROUTE .STK-MED ONE Stop: 12/22/20 13:50 Last Admin: 12/23/20 04:48 Dose: Not Given Documented by: Lidocaine HCl (Lidocaine 1% 50 Ml Mdv) 50 ml INJECT ONETIME PRN PRN Reason: Laceration repair Last Admin: 12/22/20 17:53 Dose: 50 ml Documented by: Methylergonovine Maleate (Methylergonovine 0.2 Mg/1 Ml Amp) 0.2 mg IM ASDIRECTED PRN PRN Reason: Post Hemorrhage Misoprostol (Misoprostol 200 Mcg Tab) 200 mcg PO ONETIME PRN PRN Reason: Post Hemorrhage Misoprostol (Misoprostol 25 Mcg (1/4 Of 100 Mcg) Tab) 25 mcg VAG ONETIME PRN PRN Reason: Cervical Ripening Misoprostol (Misoprostol 25 Mcg (1/4 Of 100 Mcg) Tab) 25 mcg VAG Q4H PRN PRN Reason: Cervical Ripening Nalbuphine HCl (Nalbuphine 10 Mg/1 Ml Vial) 10 mg IVPUSH Q1H PRN PRN Reason: Pain (severe 7-10) Ondansetron HCl (Ondansetron 4 Mg/2 Ml Sdv) 4 mg IVPUSH Q4H PRN PRN Reason: Nausea/Vomiting Sodium Chloride (Sodium Chloride 0.9% 10 Ml Sdv) 10 ml IV ASDIRECTED PRN PRN Reason: IV Use Sterile Water (Water For Irrigation,Sterile 1,000 Ml Container) 1,000 ml IRR ASDIRECTED PRN PRN Reason: delivery Terbutaline Sulfate (Terbutaline 1 Mg/Ml Sdv) 0.25 mg SUBCUT ASDIRECTED PRN PRN Reason: Tacysystole
[2020-12-23] MEDS: Docusate Sodium 100 MG Cap PO PRN ×2 (08:50→21:15)
[2020-12-24] MEDS: Ibuprofen 800 MG Tab PO PRN ×2 (06:44→14:16)
--- NOTE | 2020-12-24 06:52 | PCM48HPAN ---
Post Anesthesia Note - EVALUATION WITHIN 48HRS OF ANESTHETIC Vital Signs in Normal Range: Yes Patient Participated in Evaluation: Yes Respiratory Function Stable: Yes Airway Patent: Yes Cardiovascular Function Stable: Yes Hydration Status Stable: Yes Pain Control Satisfactory: Yes Nausea and Vomiting Control Satisfactory: Yes Mental Status Recovered: Yes Vital Signs: Last Vital Signs Temp 36.9 C 12/24/20 05:45 Pulse 91 12/24/20 05:45 Resp 16 12/24/20 05:45 BP 139/73 12/24/20 05:45 Pulse Ox 98 12/24/20 05:45
[2020-12-24] MEDS: Docusate Sodium 100 MG Cap PO PRN (09:14)
--- NOTE | 2020-12-24 15:54 | PCM.DCSUM1 ---
Discharge Summary - Hospital Course Free Text/Narrative:: Geovanna is a 20 yo current PPD2 S/P of viable term NBF S/P IOL with elevated BPs. O neg/O pos, Prophylactic RhoGam administered 12/24/2020; RI, GBS neg. still on bili-lights for hyperbilirubinemia; still in nursery. Patient reports she is doing well with no complaints or concerns at this time. Hemodynamically stable without medication, afebrile. Breast pumping and subsequent bottle feeding. Ambulating, hydrating, eating, and voi ding independently and without difficulty. Patient verbalizes her desire to be discharged home today. Diagnosis: Stroke: No Modified [place] Scale: No Symptoms at All Modified [place] Scale Score: 0 - Discharge Data Discharge Date: 12/24/20 Discharge Disposition: Home, Self-Care 01 Condition: Good - Referral to Home Health Primary Care Physician: PCP None - Patient Instructions Diet: Usual Diet as Tolerated, Regular Diet as Tolerated, Drink 8-10+ Glasses/Day Activity: As Tolerated Driving: May Drive Today Showering/Bathing: May Shower Showering/Bathing, Other: May sitz bath for perineal comfort. Notify Provider of: Fever, Increased Pain, Swelling and Redness, Drainage, Nausea and/or Vomiting - Discharge Plan *PRESCRIPTION DRUG MONITORING PROGRAM REVIEWED*: No *COPY OF PRESCRIPTION DRUG MONITORING REPORT IN PATIENT ARIS: No Prescriptions/Med Rec: Ibuprofen [Motrin] 800 mg PO Q8H PRN #90 tablet PRN Reason: Pain Home Medications: Home Meds Cholestyramine/Sucrose [Cholestyramine] 12/22/20 [History] Cholestyramine/Sucrose [Cholestyramine] 1 packet PO ACDINNER 12/22/20 [History] Colchicine/Probenecid [Probenecid-Colchicine] 1 tab PO DAILY 12/22/20 [History] Vits #93/Iron Fum/FA [ Formula Tablet] 1 each PO DAILY 12/22/20 [History] Sertraline [Zoloft] 75 mg PO DAILY 12/22/20 [History] Ibuprofen [Motrin] 800 mg PO Q8H PRN #90 tablet 12/24/20 [Rx] Oxygen Therapy Mode: Room Air Patient Handouts: Baby Blues, Care After Vaginal Delivery Referrals: [facility] [Ordering Only Provider] - 12/30/20 3:00 pm (1 week blood pressure follow-up.) Mi Hollingsworth, [place], [employer] DES[employer]IST [Mid-] - 01/27/21 9:00 am ( follow-up appointment.) - Discharge Summary/Plan Comment DC Time >30 min.: Yes Discharge Summary/Plan Comment: Warning S/Ss, when to call for help discussed, no questions or concerns at this time. RTO in 1 week for BP check or sooner if indicated. RTO in 6 weeks for visit, or sooner if problems occur. - General Info Date of Service: 12/24/20 Admission Dx/Problem (Free Text: Patient Status Order with Admit Dx/Problem 12/22/20 05:04 Patient Status [ADT] Routine 12/22/20 08:28 Patient Status [ADT] Routine Admission Diagnosis/Problem Admission Diagnosis/Problem 12/22/20 08:33 at 38 3/7 weeks (ZURDO: 01/02/21 by first trimester ultrasound) presenting to L&D with complaints of regular uterine contractions and possible SROM at 0230. Amnisure negative. VE at 0515 noted 3cm/80%/-2, soft, midposition, vertex per nurse report (12/20/20 exam in-office was closed, thick, and high with mild funneling of external os, posterior). Follow up VE at 0752 noted 3cm/70%/-2, soft, midposition, vertex per nurse report. No cervical change observed. However, patient's BP has been consistently reading 150s/90s. As such, and after consulting with Dr. Feliz, I have decided to keep the patient and proceed with delivery (aided by cytotec and pitocin PRN). She continues to contract every 2-4 minutes and is having to breathe through the pain. Vertex presentation by Javier'mar. O-, Rubella immune, GBS negative. This has also been notable for PUPPP (managed with hydroxyzine) and obesity. We have discussed the use of cytotec and pitocin as needed; I have answered all the patient's questions at this time. Functional Status: Reports: Pain Controlled, Tolerating Diet, Ambulating, Urinating - Review of Systems General: Reports: No Symptoms HEENT: Reports: No Symptoms Pulmonary: Reports: No Symptoms Cardiovascular: Reports: No Symptoms Gastrointestinal: Reports: No Symptoms Genitourinary: Reports: No Symptoms Musculoskeletal: Reports: No Symptoms Skin: Reports: No Symptoms Neurological: Reports: No Symptoms Psychiatric: Reports: No Symptoms - Patient Data Vitals - Most Recent: Last Vital Signs Temp 97.8 F 12/24/20 07:35 Pulse 91 12/24/20 07:35 Resp 16 12/24/20 07:35 BP 124/77 12/24/20 07:35 Pulse Ox 96 12/24/20 07:35 Weight - Most Recent: 210 lb I&O - Last 24 hours: Intake & Output 12/24/20 12/24/20 12/24/20 06:59 14:59 22:59 Intake Total 2 Balance 2 Lab Results - Last 24 hrs: Laboratory Results - last 24 hr 12/22/20 Range/Units 17:18 Screen NEGATIVE (NEGATIVE) RhIG Candidate? YES Rhogam Indicated YES, BABY RH POS H Med Orders - Current: Current Medications Acetaminophen (Acetaminophen 500 Mg Tab) 500 mg PO Q4H PRN PRN Reason: Pain Acetaminophen (Acetaminophen 500 Mg Tab) 1,000 mg PO Q4H PRN PRN Reason: Pain Last Admin: 12/24/20 07:36 Dose: 1,000 mg Documented by: Benzocaine/Menthol (Benzocaine/Menthol 20%-0.5% [place] 78 Gm Cannister) 78 gm TOP ASDIRECTED PRN PRN Reason: Perineal Comfort Measure Last Admin: 12/22/20 20:24 Dose: 1 spray Documented by: Bisacodyl (Bisacodyl 10 Mg Supp) 10 mg RECTAL ONETIME PRN PRN Reason: Constipation Docusate Sodium (Docusate Sodium 100 Mg Cap) 100 mg PO BID PRN PRN Reason: Constipation Last Admin: 12/24/20 09:14 Dose: 100 mg Documented by: Emollient Ointment (Lanolin 100% Cream 7 Gm Tube) 0 gm TOP ASDIRECTED PRN PRN Reason: Sore Nipples Last Admin: 12/22/20 20:22 Dose: 1 gm Documented by: Ibuprofen (Ibuprofen 400 Mg Tab) 400 mg PO Q4H PRN PRN Reason: Pain Ibuprofen (Ibuprofen 800 Mg Tab) 800 mg PO Q6H PRN PRN Reason: Pain Last Admin: 12/24/20 14:16 Dose: 800 mg Documented by: Oxycodone HCl (Oxycodone 5 Mg Tab) 5 mg PO Q2H PRN PRN Reason: Pain Witch Charla (Witch Charla Medicated Pads 40/Jar) 1 pad TOP ASDIRECTED PRN PRN Reason: comfort care Last Admin: 12/22/20 20:24 Dose: 1 pad Documented by: Discontinued Medications Bupivacaine HCl (Bupivacaine 0.5% 10 Ml Sdv) Confirm Administered Dose 10 ml .ROUTE .STK-MED ONE Stop: 12/22/20 16:26 Last Admin: 12/23/20 04:47 Dose: Not Given Documented by: Butorphanol Tartrate (Butorphanol 1 Mg/Ml Sdv) 1 mg IVPUSH Q1H PRN PRN Reason: Pain Carboprost Tromethamine (Carboprost Tromethamine 250 Mcg/1 Ml Amp) 250 mcg IM ASDIRECTED PRN PRN Reason: Post Hemorrhage Fentanyl (Fentanyl 100 Mcg/2 Ml Sdv) Confirm Administered Dose 100 mcg .ROUTE .STK-MED ONE Stop: 12/22/20 13:49 Last Admin: 12/23/20 04:47 Dose: Not Given Documented by: Hydralazine HCl (Hydralazine 20 Mg/Ml Sdv) 10 mg IVPUSH ONETIME ONE Stop: 12/22/20 13:42 Last Admin: 12/22/20 15:23 Dose: Not Given Documented by: Lactated Ringer's (Ringers, Lactated) 1,000 mls @ 150 mls/hr IV ASDIRECTED YADIRA Last Admin: 12/22/20 15:23 Dose: 150 mls/hr Documented by: Oxytocin/Sodium Chloride (Oxytocin 30 Unit/500 Ml-Ns) 30 unit in 500 mls @ 999 mls/hr IV TITRATE YADIRA Tranexamic Acid 1,000 mg/ (Sodium Chloride) 110 mls @ 660 mls/hr IV ONETIME PRN PRN Reason: Bleeding Oxytocin/Sodium Chloride (Oxytocin 30 Unit/500 Ml-Ns) 30 unit in 500 mls @ 2 ml s/hr IV TITRATE YADIRA; Protocol Last Titration: 12/22/20 17:40 Dose: 999 munits/min, 999 mls/hr Documented by: Fentanyl/Bupivacaine HCl (Fentanyl/Bupivacaine/Ns 2 Mcg-0.125% 250 Ml) Confirm Administered Dose 250 mls @ as directed .ROUTE .STK-MED ONE Stop: 12/22/20 13:50 Last Admin: 12/23/20 04:48 Dose: Not Given Documented by: Lidocaine HCl (Lidocaine 1% 50 Ml Mdv) 50 ml INJECT ONETIME PRN PRN Reason: Laceration repair Last Admin: 12/22/20 17:53 Dose: 50 ml Documented by: Methylergonovine Maleate (Methylergonovine 0.2 Mg/1 Ml Amp) 0.2 mg IM ASDIRECTED PRN PRN Reason: Post Hemorrhage Misoprostol (Misoprostol 200 Mcg Tab) 200 mcg PO ONETIME PRN PRN Reason: Post Hemorrhage Misoprostol (Misoprostol 25 Mcg (1/4 Of 100 Mcg) Tab) 25 mcg VAG ONETIME PRN PRN Reason: Cervical Ripening Misoprostol (Misoprostol 25 Mcg (1/4 Of 100 Mcg) Tab) 25 mcg VAG Q4H PRN PRN Reason: Cervical Ripening Nalbuphine HCl (Nalbuphine 10 Mg/1 Ml Vial) 10 mg IVPUSH Q1H PRN PRN Reason: Pain (severe 7-10) Ondansetron HCl (Ondansetron 4 Mg/2 Ml Sdv) 4 mg IVPUSH Q4H PRN PRN Reason: Nausea/Vomiting Sodium Chloride (Sodium Chloride 0.9% 10 Ml Sdv) 10 ml IV ASDIRECTED PRN PRN Reason: IV Use Sterile Water (Water For Irrigation,Sterile 1,000 Ml Container) 1,000 ml IRR ASDIRECTED PRN PRN Reason: delivery Terbutaline Sulfate (Terbutaline 1 Mg/Ml Sdv) 0.25 mg SUBCUT ASDIRECTED PRN PRN Reason: Tacysystole - Exam General: Reports: Alert, Oriented, Cooperative, No Acute Distress HEENT: Reports: Pupils Equal, Mucous Membr. Moist/[place] Neck: Reports: Supple Lungs: Reports: Clear to Auscultation, Normal Respiratory Effort Cardiovascular: Reports: Regular Rate, Regular Rhythm GI/Abdominal Exam: Normal Bowel Sounds, Soft, Non-Tender, No Organomegaly, No Distention (Female) Exam: Normal External Exam, Enlarged Uterus ( uterus, firm @U), Vaginal Bleeding (Small rubra lochia, no clots.) Rectal (Female) Exam: Deferred Back Exam: Reports: Normal Inspection, Full Range of Motion Extremities: Normal Inspection, Normal Range of Motion, Non-Tender, No Pedal Edema, Normal Capillary Refill Skin: Reports: Warm, Dry, Intact Psy/Mental Status: Reports: Alert, Normal Affect, Normal Mood
== END 2020-12-24 16:50 | disposition home or self-care (01) | DRG 768 ==
LOC: MW.OBCHECK 05:01 → MW.OB 05:03 → MW.OBCHECK 08:26 → MW.OB 08:28 → OBSVTOIN 17:36 → MW.OB 12-23 01:32
PROVIDERS: ADMIT Obstetrics & Gynecology; ATTEND Obstetrics & Gynecology
PROC: 10E0XZZ Delivery of Products of Conception, External Approach (ICD-10-PCS; principal; 2020-12-22)
PROC: 0DQR0ZZ Repair Anal Sphincter, Open Approach (ICD-10-PCS; 2020-12-22)
PROC: 3E0R3BZ Introduction of Anesthetic Agent into Spinal Canal, Percutaneous Approach (ICD-10-PCS; 2020-12-22)
DX: O99.214 Obesity complicating childbirth (principal); Z37.0 Single live birth; E66.9 Obesity, unspecified; Z3A.38 38 weeks gestation of pregnancy; O26.86 Pruritic urticarial papules and plaques of pregnancy (PUPPP); Z88.2 Allergy status to sulfonamides; O69.81X0 Labor and delivery complicated by cord around neck, without compression, not applicable or unspecified; O77.0 Labor and delivery complicated by meconium in amniotic fluid; O70.20 Third degree perineal laceration during delivery, unspecified; Z20.822 Contact with and (suspected) exposure to COVID-19
CPT/HCPCS: 01967; 36415; 36430; 51702; 59025; 59409; 84112; 85014; 85018; 85027; 85460; 86592; 86850; 86870; 86900; 86901; 87480; 87510; 87660; A9270-GY; J2001; J2590; J2792; J3010; J3490; J7120; U0002

== ENCOUNTER 2022-09-19 04:08 | Inpatient (IN) | payer BC, OTHER ==
[2022-09-19] MEDS ORDERED: Lidocaine 2% with EPINEPHrine 1:200,000 20 ML SDV ONE (05:14)
[2022-09-19] MEDS ORDERED: Ropivacaine/PF 400 MG/200 ML PCA ONE (05:14)
[2022-09-19] MEDS ORDERED: Lidocaine 2% with EPINEPHrine 1:200,000 20 ML SDV INJECT ONE (05:14)
[2022-09-19] MEDS ORDERED: Oxytocin/0.9 % Sodium Chloride 30 UNIT/500 ML BAG ONE (05:54)
[2022-09-19] MEDS ORDERED: Tranexamic Acid 1,000 MG in Sodium Chloride 0.9% 100 ML IV PRN (06:16)
[2022-09-19] MEDS ORDERED: Butorphanol 1 MG/ML SDV IVPUSH PRN (06:16)
[2022-09-19] MEDS ORDERED: Carboprost Tromethamine 250 MCG/1 ML Amp IM PRN (06:16)
[2022-09-19] MEDS ORDERED: Lidocaine 1% 50 ML MDV INJECT PRN (06:16)
[2022-09-19] MEDS ORDERED: Sodium Chloride 0.9% 2.5 ML Syringe FLUSH PRN (06:16)
[2022-09-19] MEDS ORDERED: Sodium Chloride 0.9% 20 ML SDV IV PRN (06:16)
[2022-09-19] MEDS ORDERED: Misoprostol 200 MCG Tab PO PRN (06:16)
[2022-09-19] MEDS ORDERED: Water For Irrigation,Sterile 1,000 ML Container IRR PRN (06:16)
[2022-09-19] MEDS ORDERED: Sodium Chloride 0.9% 10 ML Syringe FLUSH PRN (06:16)
[2022-09-19] MEDS ORDERED: Methylergonovine 0.2 MG/1 ML Amp IM PRN (06:16)
[2022-09-19] MEDS ORDERED: Lactated Ringers 1,000 ML IV SCH (06:30)
[2022-09-19] MEDS ORDERED: Oxytocin/0.9 % Sodium Chloride 30 UNIT/500 ML BAG IV SCH (06:30)
[2022-09-19] MEDS ORDERED: Bisacodyl 10 MG Supp RECTAL PRN (07:28)
[2022-09-19] MEDS ORDERED: Acetaminophen 500 MG Tab PO PRN ×2 (07:28)
[2022-09-19] MEDS ORDERED: Lanolin 100% Cream 7 GM Tube TOP PRN (07:28)
[2022-09-19] MEDS ORDERED: Docusate Sodium 100 MG Cap PO PRN (07:28)
[2022-09-19] MEDS ORDERED: Witch Hazel Medicated Pads 40/Jar TOP PRN (07:28)
[2022-09-19] MEDS ORDERED: oxyCODONE 5 MG Tab PO PRN (07:28)
[2022-09-19] MEDS ORDERED: Benzocaine/Menthol 20%-0.5% Spray 78 GM Cannister TOP PRN (07:28)
[2022-09-19] MEDS ORDERED: Ibuprofen 400 MG Tab PO PRN (07:28)
[2022-09-19] MEDS ORDERED: Phenylephrine HCl In 0.9% NaCl 1 MG/10 ML Vial IVPUSH PRN (08:12)
[2022-09-19] MEDS ORDERED: ePHEDrine 50 MG/ML SDV IVPUSH PRN ×2 (08:12)
[2022-09-19] MEDS ORDERED: Phenylephrine HCl In 0.9% NaCl 1 MG/10 ML Vial IVPUSH SCH (08:15)
[2022-09-19] MEDS ORDERED: Ropivacaine HCl/PF 400 MG in Premix Bag 1 BAG EPIDUR SCH (08:15)
[2022-09-19] MEDS: Ibuprofen 800 MG Tab PO PRN ×2 (10:29→17:12)
[2022-09-20] MEDS ORDERED: Ropivacaine HCl/PF 400 MG in Premix Bag 1 BAG EPIDUR SCH (12:15)
== END 2022-09-20 12:52 | disposition home or self-care (01) | DRG 560 ==
LOC: MW.OB 04:08 → MW.OBCHECK 04:08 → MW.OB 06:16 → MW.OBCHECK 06:16 → OBSVTOIN 07:08 → MW.OB 19:07
PROVIDERS: ADMIT Obstetrics & Gynecology; ATTEND Obstetrics & Gynecology
PROC: 10E0XZZ Delivery of Products of Conception, External Approach (ICD-10-PCS; principal; 2022-09-19)
PROC: 3E0R3BZ Introduction of Anesthetic Agent into Spinal Canal, Percutaneous Approach (ICD-10-PCS; 2022-09-19)
PROC: 00HU33Z Insertion of Infusion Device into Spinal Canal, Percutaneous Approach (ICD-10-PCS; 2022-09-19)
DX: O99.344 Other mental disorders complicating childbirth (principal); O70.0 First degree perineal laceration during delivery; Z3A.39 39 weeks gestation of pregnancy; Z37.0 Single live birth; F41.9 Anxiety disorder, unspecified; F32.A Depression, unspecified; O36.63X0 Maternal care for excessive fetal growth, third trimester, not applicable or unspecified; Z88.2 Allergy status to sulfonamides; Z20.822 Contact with and (suspected) exposure to COVID-19; Z90.89 Acquired absence of other organs
CPT/HCPCS: 36415; 59025; 59409; 85014; 85018; 85027; 85460; 86592; 86850; 86900; 86901; A9270-GY; J2590; J2790; J2795; U0002

== ENCOUNTER 2024-06-19 05:12 | Inpatient (IN) | payer BC, OTHER ==
[2024-06-19] MEDS: Lactated Ringers 1,000 ML IV SCH (05:15)
[2024-06-19] MEDS: Ropivacaine HCl/PF 400 MG in Premix Bag 1 BAG EPIDUR SCH (05:48)
[2024-06-19] MEDS ORDERED: Ropivacaine HCl/PF 200 ML ONE (06:04)
[2024-06-19] MEDS ORDERED: Carboprost Tromethamine 250 MCG/1 mL Vial IM PRN (06:07)
[2024-06-19] MEDS ORDERED: Lidocaine 1% 50 ML MDV INJECT PRN (06:07)
[2024-06-19] MEDS ORDERED: Tranexamic Acid IN NACL,ISO-OS 1,000 MG in Premix Bag 1 BAG IV PRN ×2 (06:07→08:15)
[2024-06-19] MEDS ORDERED: Misoprostol 200 MCG Tab PO PRN (06:07)
[2024-06-19] MEDS ORDERED: Butorphanol 2 MG/ML SDV IVPUSH PRN (06:07)
[2024-06-19] MEDS ORDERED: Sodium Chloride 0.9% 10 ML Syringe FLUSH PRN (06:07)
[2024-06-19] MEDS ORDERED: Sodium Chloride 0.9% 2.5 ML Syringe FLUSH PRN (06:07)
[2024-06-19] MEDS ORDERED: Methylergonovine 0.2 MG/1 ML Amp IM PRN ×2 (06:07→08:15)
[2024-06-19] MEDS ORDERED: Sodium Chloride 0.9% 20 ML SDV IV PRN (06:07)
[2024-06-19] MEDS ORDERED: Water For Irrigation,Sterile 1,000 ML Container IRR PRN (06:07)
[2024-06-19 06:15] LABS: HEMOGLOBIN 13.7 g/dL (12.0-16.0); MEAN CORPUSCULAR HGB CONC 34.3 g/dL (32.0-36.0); MEAN CORPUSCULAR VOLUME 84.6 fL (83.0-99.0); MEAN PLATELET VOLUME 10.5 fL (9.4-12.3); PLATELET COUNT,PLT 228 K/uL (150-400); RED BLOOD CELL COUNT 4.73 M/uL (4.10-5.30); WHITE BLOOD CELL COUNT,WBC 11.58 K/uL (3.9-11.3)
[2024-06-19] MEDS ORDERED: ePHEDrine 50 MG/ML SDV IVPUSH PRN (06:23)
[2024-06-19] MEDS ORDERED: Phenylephrine HCl In 0.9% NaCl 1 MG/10 ML Syringe IVPUSH PRN (06:23)
[2024-06-19] MEDS ORDERED: dexmedeTOMIDine HCl 200 MCG/2 ML SDV EPIDUR SCH (06:30)
[2024-06-19] MEDS: Ondansetron 4 MG/2 ML SDV IVPUSH PRN (06:46)
[2024-06-19] MEDS: Oxytocin/0.9 % Sodium Chloride 30 UNIT/500 ML BAG IV SCH (07:47)
[2024-06-19 08:25] LABS: PH,UMBILICAL ARTERIAL 7.233 (7.18-7.38); PH,UMBILICAL VENOUS 7.313 (7.25-7.45)
[2024-06-19] MEDS: Phenylephrine 1% 10 MG/ML SDV ONE (10:22)
[2024-06-19] MEDS: dexmedeTOMIDine HCl 200 MCG/2 ML SDV ONE (10:22)
[2024-06-19] MEDS: Prenatal Multivitamin with Calcium/Folic Acid/Iron Tab PO SCH (10:22)
[2024-06-19] MEDS: Bupivacaine 0.25% 10 ML SDV ONE (10:22)
[2024-06-19] MEDS: Phenylephrine HCl In 0.9% NaCl 1 MG/10 ML Syringe ONE (10:23)
[2024-06-19] MEDS: Witch Hazel Medicated Pads 40/Jar TOP PRN (11:11)
[2024-06-19] MEDS: Benzocaine/Menthol 20%-0.5% Spray 78 GM Cannister TOP PRN (11:11)
[2024-06-19] MEDS: Acetaminophen 500 MG Tab PO PRN (11:11)
[2024-06-19] MEDS: Lanolin 100% Cream 7 GM Tube TOP PRN (11:11)
[2024-06-19] MEDS: Sertraline 100 MG Tab PO SCH (11:12)
[2024-06-19] MEDS: Ibuprofen 800 MG Tab PO PRN (16:35)
[2024-06-19] MEDS: Docusate Sodium 100 MG Cap PO PRN (19:48)
== END 2024-06-20 13:19 | disposition home or self-care (01) | DRG 807 ==
LOC: MW.OBCHECK 05:12 → MW.OB 05:14 → MW.OBCHECK 06:07 → MW.OB 06:07 → OBSVTOIN 08:15 → MW.OB 11:37
PROVIDERS: ADMIT Obstetrics & Gynecology; ATTEND Obstetrics & Gynecology
PROC: 10E0XZZ Delivery of Products of Conception, External Approach (ICD-10-PCS; principal; 2024-06-19)
PROC: 0HQ9XZZ Repair Perineum Skin, External Approach (ICD-10-PCS; 2024-06-19)
PROC: 3E0334Z Introduction of Serum, Toxoid and Vaccine into Peripheral Vein, Percutaneous Approach (ICD-10-PCS; 2024-06-19)
PROC: 3E0R3BZ Introduction of Anesthetic Agent into Spinal Canal, Percutaneous Approach (ICD-10-PCS; 2024-06-19)
PROC: 00HU33Z Insertion of Infusion Device into Spinal Canal, Percutaneous Approach (ICD-10-PCS; 2024-06-19)
DX: O77.0 Labor and delivery complicated by meconium in amniotic fluid (principal); Z37.0 Single live birth; Z3A.38 38 weeks gestation of pregnancy; O70.0 First degree perineal laceration during delivery; O26.893 Other specified pregnancy related conditions, third trimester; Z67.41 Type O blood, Rh negative
CPT/HCPCS: 36415; 59025; 59409; 82803; 85014; 85018; 85027; 85460; 86592; 86850; 86900; 86901; A9270-GY; J2371; J2405; J2590; J2790; J2795; J3490; J7120